=== PATIENT | female | born 1985 | race Caucasian/White ===

== ENCOUNTER 2019-01-30 14:55 | Emergency (ER) | payer MEDICAID ==
[2019-01-30] MEDS ORDERED: Lidocaine 2% 5 ML SDV INJECT ONE (14:56)
--- NOTE | 2019-01-30 15:00 | EDM.PDOC ---
ED HPI GENERAL MEDICAL PROBLEM - General Stated Complaint: LACERATION Time Seen by Provider: 01/30/19 14:55 Source of Information: Reports: Patient History Limitations: Reports: No Limitations - History of Present Illness INITIAL COMMENTS - FREE TEXT/NARRATIVE: 33 y.o.w.f came to the ed after she cut herself in her left ring finger while preparing lunch into her left distal ring finger. Wound was bleeding severely which prompted her to come to the ED. No N/V/D or any other acute trauma/medial issues. BP 144/63 Temp 98.0 O2 sat 100% Pulse 86 RR 18 Onset Date: 01/30/19 Onset Time: 12:00 Duration: Hour(s): Location: Reports: Upper Extremity, Left (ring finger) Quality: Reports: Ache, Dull Severity: Mild Improves with: Reports: Rest Worsens with: Reports: Movement Context: Reports: Trauma Associated Symptoms: Reports: No Other Symptoms - Related Data Allergies Allergy/AdvReac Type Severity Reaction Status Date / Time bupropion [From Wellbutrin] Allergy Anaphylactic Verified 01/30/19 15:05 Shock Home Meds: Home Meds Amoxicillin/Potassium Clav [Augmentin 875-125 Tablet] 1 each PO BID #20 tablet 01/30/19 [Rx] DULoxetine [Cymbalta] 90 mg PO DAILY 01/30/19 [History] Gabapentin [Neurontin] 600 mg PO TID 01/30/19 [History] Mirtazapine [Remeron] 7.5 mg PO BEDTIME 01/30/19 [History] ED ROS GENERAL - Review of Systems Review Of Systems: See Below Constitutional: Reports: No Symptoms HEENT: Reports: No Symptoms Respiratory: Reports: No Symptoms Cardiovascular: Reports: No Symptoms Endocrine: Reports: No Symptoms GI/Abdominal: Reports: No Symptoms : Reports: No Symptoms Musculoskeletal: Reports: No Symptoms Skin: Reports: Wound (left ringfinger) Neurological: Reports: No Symptoms Psychiatric: Reports: No Symptoms Hematologic/Lymphatic: Reports: No Symptoms Immunologic: Reports: No Symptoms ED EXAM, SKIN/RASH Exam: See Below Exam Limited By: No Limitations General Appearance: Alert, WD/WN, Mild Distress, Obese Eye Exam: Bilateral Eye: Normal Inspection Ears: Normal External Exam Nose: Normal Inspection, Normal Mucosa Throat/Mouth: Normal Inspection, Normal Lips, Normal Voice, No Airway Compromise Head: Atraumatic, Normocephalic Neck: Normal Inspection, Supple, Non-Tender, Full Range of Motion Respiratory/Chest: No Respiratory Distress, Lungs Clear, Normal Breath Sounds, Chest Non-Tender Cardiovascular: Normal Peripheral Pulses, Regular Rate, Rhythm, No Edema GI/Abdominal: Normal Bowel Sounds, Soft (Female) Exam: Deferred Rectal (Female) Exam: Deferred Back Exam: Normal Inspection, Full Range of Motion Extremities: Normal Range of Motion, Non-Tender, No Pedal Edema, Normal Capillary Refill, Other (Lac left ringfinger) Neurological: Alert, Oriented, CN II-XII Intact, Normal Cognition, Normal Gait Psychiatric: Normal Affect, Normal Mood Skin: Warm, Dry, Wound/Incision (wound left ring finger ) Lymphatic: No Adenopathy ED SKIN PROCEDURES - Laceration/Wound Repair Left Anterior Distal Digit - 4th (Ring) Lac/Wound length In cm: 1 Appearance: Linear, Clean Distal NVT: Neuro & Vascular Intact, No Tendon Injury Anesthetic Type: Local Local Anesthesia - Lidocaine (Xylocaine): 2% Plain Local Anesthetic Volume: 1cc Skin Prep: Chlorhexidine (Hibiciens) Saline Irrigation (cc's): 2 Exploration/Debridement/Repair: Wound Explored, In a Bloodless Field, Explored to Base Suture Size: 4-0 # of Sutures: 2 Suture Type: Other (ethilon) Tetanus Status Addressed: Yes (2014) Complications: No Course - Vital Signs Text/Narrative:: 33 y.o.w.f came to the ed after she cut herself in her left ring finger while preparing lunch into her left distal ring finger. Wound was bleeding severely which prompted her to come to the ED. No N/V/D or any other acute trauma/medial issues. BP 144/63 Temp 98.0 O2 sat 100% Pulse 86 RR 18 PE: Morbid obese w f with a small LAC left ringfinger, mild bleed Imaging: Not indicated Impression: LAC left ring finger, repaired Tx: Procedure please see note above, Abx as a prescription Reexam: Pt was doing fine in the ED Plan: D/C with instructions Departure - Departure Time of Disposition: 15:14 Disposition: Home, Self-Care 01 Condition: Good Clinical Impression: Laceration - Discharge Information *PRESCRIPTION DRUG MONITORING PROGRAM REVIEWED*: Not Applicable *COPY OF PRESCRIPTION DRUG MONITORING REPORT IN PATIENT HERLINDA: Not Applicable Prescriptions: Amoxicillin/Potassium Clav [Augmentin 875-125 Tablet] 1 each PO BID #20 tablet Instructions: Laceration Care, Adult Referrals: PCP,Not In Area [Primary Care Provider] - Forms: ED Department Discharge Additional Instructions: Wound check in 2 days, suture removal in 7-10 days, Augmentin as recommended, please comne back if your symptoms get worse acutely
== END 2019-01-30 15:30 | disposition home or self-care (01) ==
LOC: FB.ED 14:55
DX: S61.215A Laceration without foreign body of left ring finger without damage to nail, initial encounter (principal); W45.8XXA Other foreign body or object entering through skin, initial encounter; Y93.G1 Activity, food preparation and clean up; Z88.8 Allergy status to other drugs, medicaments and biological substances; Z79.899 Other long term (current) drug therapy
CPT/HCPCS: 12001; 12011; 99282; J2001